=== PATIENT | female | born 1965 | race Caucasian/White ===

== ENCOUNTER 2023-08-13 13:50 | Outpatient (REF) | payer BC, SELFPAY | END 2023-08-13 13:51 | disposition home or self-care (01) | LOC: NFLDREF 13:50 | PROVIDERS: Visit Provider Nurse Practitioner Family | DX: R30.0 Dysuria (principal); N30.90 Cystitis, unspecified without hematuria | CPT/HCPCS: 87086; 87186 ==

== ENCOUNTER 2024-07-09 11:26 | Outpatient (CLI) | payer BC, SELFPAY | END 2024-07-09 11:27 | disposition home or self-care (01) | LOC: NFLDREF 07-13 18:11 | PROVIDERS: Visit Provider Physician Assistant | DX: N39.0 Urinary tract infection, site not specified (principal) | CPT/HCPCS: 87086 ==